=== PATIENT | male | born 1980 | race Caucasian/White ===

== ENCOUNTER 2021-01-15 13:08 | Inpatient (IN) | payer BC ==
[~2021-01-15] VITALS: Ht 193 cm; Wt 106.8 kg
[2021-01-15 14:22] LABS: BASOPHILS % (AUTO) 0.5 % (0-1); EOSINOPHILS # (AUTO) 0.1 X10'3 (0-0.9); EOSINOPHILS % (AUTO) 1.3 % (0-6); LYMPHOCYTES # (AUTO) 1.3 X10'3 (1.1-4.8); LYMPHOCYTES % (AUTO) 16.7 % (21-51); MEAN CORPUSCULAR HEMOGLOBIN 28.5 PG (27.0-31.0); MEAN CORPUSCULAR HGB CONC 34.1 g/dL (33.0-36.5); MEAN CORPUSCULAR VOLUME 83.7 FL (78-98); MEAN PLATELET VOLUME 7.8 FL (7.4-10.4); MONOCYTES # (AUTO) 0.5 X10'3 (0-0.9); MONOCYTES % (AUTO) 6.4 % (2-12); NEUTROPHILS % (AUTO) 75.1 % (42-75); PLATELET COUNT 244 X10'3 (140-440); RED CELL DISTRIBUTION WIDTH 13.1 % (11.5-14.5)
[2021-01-15 14:41] LABS: ALANINE AMINOTRANSFERASE 38 U/L (12-78); ALBUMIN 3.8 G/DL (3.4-5.0); ALKALINE PHOSPHATASE 72 IU/L (46-116); AMYLASE 37 U/L (25-115); ANION GAP 8 (8-16); ASPARTATE AMINO TRANSFERASE 20 U/L (10-37); BILIRUBIN,TOTAL 0.9 MG/DL (0.1-1.0); BLOOD UREA NITROGEN 16 MG/DL (7-18); BUN/CREATININE RATIO 14.8 (5.4-32.0); CALCIUM 8.9 MG/DL (8.5-10.1); CHLORIDE 104 MMOL/L (99-107); CREATININE 1.08 MG/DL (0.60-1.10); GLUCOSE 89 MG/DL (70-104); LIPASE 63 U/L (73-393); SODIUM 142 MMOL/L (135-145); TOTAL CARBON DIOXIDE 30.3 MMOL/L (24-32); TOTAL PROTEIN 7.6 G/DL (6.4-8.2); eGFR 76 ML/MIN
[2021-01-15] MEDS ORDERED: normal saline 1000ML IV soln IVB ONE (18:35)
[2021-01-15] MEDS ORDERED: iohexol 300mg/ml 100ml inj. ONE (18:40)
[2021-01-15 19:16] LABS: CLARITY,URINE CLEAR (Clear); COLOR,URINE YELLOW (Yellow); GLUCOSE, URINE NEGATIVE (Neg); KETONES,URINE NEGATIVE (Neg); LEUKOCYTE ESTERASE ,URINE NEGATIVE (Neg); NITRITES, URINE NEGATIVE (Neg); OCCULT BLOOD,URINE NEGATIVE (Neg); PH,URINE 5.5 (4.8-8.0); PROTEIN,URINE NEGATIVE (Neg); UROBILINOGEN,URINE 0.2 E.U/dL (0.2-1.0)
[2021-01-15 19:22] LABS: UA COLLECTION TYPE NON-SPECIFIED
[2021-01-15] MEDS ORDERED: temazepam 15mg capsule PO PRN (21:00)
[2021-01-15] MEDS ORDERED: metroNIDAZOLE-Flagyl 500mg/NS 100 ML IV ONE (21:35)
[2021-01-15] MEDS ORDERED: levoFLOXACIN-Levaquin 250mg/D5 50 ML IV ONE (21:35)
[2021-01-15] MEDS ORDERED: NO HOME MEDS (21:42)
[2021-01-15] MEDS ORDERED: bisacodyl 10mg suppository rectal RC PRN (22:10)
[2021-01-15] MEDS ORDERED: diphenhydrAMINE 25mg capsule PO PRN (22:10)
[2021-01-15] MEDS ORDERED: HYDROcodone/acetaminophen 10/325mg tab PO PRN (22:10)
[2021-01-15] MEDS ORDERED: magnesium hydroxide 30ml (MOM) UD suspension PO PRN (22:10)
[2021-01-15] MEDS ORDERED: metoclopramide 5 mg/ml inj IV PRN (22:10)
[2021-01-15] MEDS ORDERED: ondansetron 4mg rapidly disintigrating tab PO PRN (22:10)
[2021-01-15] MEDS ORDERED: acetaminophen 650mg rectal suppository RC PRN (22:10)
[2021-01-15] MEDS ORDERED: acetaminophen 325mg tablet PO PRN (22:10)
[2021-01-15] MEDS ORDERED: morphine 2 MG/ML inj. syringe IV PRN ×2 (22:10)
[2021-01-15] MEDS ORDERED: HYDROcodone/acetaminophen 5mg/325mg tablet PO PRN (22:10)
[2021-01-15] MEDS ORDERED: diphenhydrAMINE 50 mg/ml inj IV PRN (22:10)
[2021-01-15] MEDS ORDERED: ondansetron/PF 4mg/2ml inj IV PRN (22:10)
[2021-01-15] MEDS ORDERED: HYDROmorphone inj. 0.5 MG/0.5 ML DISP.SYRIN IV PRN (22:10)
[2021-01-15] MEDS ORDERED: mag hydrox/Alum hydrox/simeth 30ml oral suspension PO PRN (22:10)
[2021-01-15] MEDS: normal saline 1000ml 1,000 ML IV SCH (22:25)
[2021-01-15 22:47] LABS: MAGNESIUM 2.1 MG/DL (1.5-2.4)
[2021-01-15] MEDS: pantoprazole 40 MG vial IV SCH (23:17)
[2021-01-16 05:18] LABS: BASOPHILS % (AUTO) 0.3 % (0-1); EOSINOPHILS # (AUTO) 0.1 X10'3 (0-0.9); EOSINOPHILS % (AUTO) 1.3 % (0-6); HEMATOCRIT 37.6 % (42.0-52.0); HEMOGLOBIN 12.7 g/dl (14.0-17.9); LYMPHOCYTES # (AUTO) 1.3 X10'3 (1.1-4.8); LYMPHOCYTES % (AUTO) 20.3 % (21-51); MEAN CORPUSCULAR HEMOGLOBIN 28.5 PG (27.0-31.0); MEAN CORPUSCULAR HGB CONC 33.7 g/dL (33.0-36.5); MEAN CORPUSCULAR VOLUME 84.6 FL (78-98); MEAN PLATELET VOLUME 8.2 FL (7.4-10.4); MONOCYTES # (AUTO) 0.6 X10'3 (0-0.9); NEUTROPHILS # (AUTO) 4.3 X10'3 (1.8-7.7); NEUTROPHILS % (AUTO) 69.1 % (42-75); PLATELET COUNT 183 X10'3 (140-440); RED BLOOD COUNT 4.44 X10'6 (4.70-6.10); RED CELL DISTRIBUTION WIDTH 13.1 % (11.5-14.5); WHITE BLOOD COUNT 6.2 X10'3 (4.5-11.0)
[2021-01-16 05:47] LABS: ALANINE AMINOTRANSFERASE 32 U/L (12-78); ALBUMIN 2.9 G/DL (3.4-5.0); ALBUMIN/GLOBULIN RATIO 0.9 (1.1-1.5); ALKALINE PHOSPHATASE 62 IU/L (46-116); ANION GAP 7 (8-16); ASPARTATE AMINO TRANSFERASE 21 U/L (10-37); BILIRUBIN,TOTAL 1.2 MG/DL (0.1-1.0); BLOOD UREA NITROGEN 14 MG/DL (7-18); BUN/CREATININE RATIO 13.6 (5.4-32.0); CHLORIDE 106 MMOL/L (99-107); CREATININE 1.03 MG/DL (0.60-1.10); GLUCOSE 104 MG/DL (70-104); POTASSIUM 4.4 MMOL/L (3.5-5.1); SODIUM 142 MMOL/L (135-145); TOTAL CARBON DIOXIDE 29.1 MMOL/L (24-32); TOTAL PROTEIN 6.1 G/DL (6.4-8.2); eGFR 80 ML/MIN
[2021-01-16] MEDS: metroNIDAZOLE-Flagyl 500mg/NS 100 ML IV SCH ×3 (08:00→16:40)
[2021-01-16] MEDS: docusate sod 100mg capsule PO SCH ×2 (08:00→19:49)
[2021-01-16] MEDS: pantoprazole 40 MG vial IV SCH (08:00)
[2021-01-16] MEDS: normal saline 1000ml 1,000 ML IV SCH ×3 (08:05→19:54)
[2021-01-16] MEDS: levoFLOXACIN-Levaquin 750MG/D5 150 ML IV SCH (09:05)
--- NOTE | 2021-01-16 10:30 | NUR ---
Report received from ED RNSiobhan.
[2021-01-16 11:00] VITALS: BP 132/96
[2021-01-16] MEDS ORDERED: LEVO500T89 PO (14:10)
[2021-01-16] MEDS ORDERED: HYDR-3965 PO (14:10)
[2021-01-16] MEDS ORDERED: METR-159 PO (14:10)
--- NOTE | 2021-01-16 18:20 | NUR ---
Problems reprioritized. Patient report given, questions answered & plan of care reviewed with Carolina Springer RN.
--- NOTE | 2021-01-16 18:20 | NUR ---
Patient in room [facility]. I have received report from SWAPNA Chamberlain and had the opportunity to ask questions and assume patient care.
[2021-01-16 18:30] VITALS: BP 163/89
--- NOTE | 2021-01-16 19:13 | NUR ---
Dr. Dawn in to see patient. No surgery at this time. Will f/u in office after DC.
[2021-01-16] MEDS: lactobacillus rhamnosus 10,000 MMU CELLS/CAPSULE PO SCH (19:49)
[2021-01-17] VITALS: BP 130/75
[2021-01-17] MEDS: metroNIDAZOLE-Flagyl 500mg/NS 100 ML IV SCH ×2 (00:01→08:01)
[2021-01-17] MEDS: normal saline 1000ml 1,000 ML IV SCH (05:39)
--- NOTE | 2021-01-17 06:15 | NUR ---
Problems reprioritized. Patient report given, questions answered & plan of care reviewed with SWAPNA Monet.
--- NOTE | 2021-01-17 06:32 | NUR ---
Patient in room [facility]. I have received report from Carolina BARCENAS and had the opportunity to ask questions and assume patient care.
[2021-01-17 07:05] LABS: BASOPHILS % (AUTO) 0.3 % (0-1); EOSINOPHILS # (AUTO) 0.1 X10'3 (0-0.9); EOSINOPHILS % (AUTO) 1.9 % (0-6); HEMATOCRIT 37.8 % (42.0-52.0); HEMOGLOBIN 13.1 g/dl (14.0-17.9); LYMPHOCYTES % (AUTO) 18.9 % (21-51); MEAN CORPUSCULAR HEMOGLOBIN 28.5 PG (27.0-31.0); MEAN CORPUSCULAR HGB CONC 34.7 g/dL (33.0-36.5); MEAN CORPUSCULAR VOLUME 82.3 FL (78-98); MEAN PLATELET VOLUME 8.1 FL (7.4-10.4); MONOCYTES # (AUTO) 0.4 X10'3 (0-0.9); MONOCYTES % (AUTO) 8.3 % (2-12); NEUTROPHILS # (AUTO) 3.6 X10'3 (1.8-7.7); NEUTROPHILS % (AUTO) 70.6 % (42-75); PLATELET COUNT 204 X10'3 (140-440); RED BLOOD COUNT 4.59 X10'6 (4.70-6.10); RED CELL DISTRIBUTION WIDTH 12.8 % (11.5-14.5); WHITE BLOOD COUNT 5.1 X10'3 (4.5-11.0)
[2021-01-17 07:32] LABS: ALANINE AMINOTRANSFERASE 27 U/L (12-78); ALBUMIN 2.9 G/DL (3.4-5.0); ALBUMIN/GLOBULIN RATIO 0.9 (1.1-1.5); ALKALINE PHOSPHATASE 71 IU/L (46-116); ANION GAP 6 (8-16); ASPARTATE AMINO TRANSFERASE 14 U/L (10-37); BILIRUBIN,TOTAL 0.7 MG/DL (0.1-1.0); BLOOD UREA NITROGEN 10 MG/DL (7-18); BUN/CREATININE RATIO 9.7 (5.4-32.0); CALCIUM 7.9 MG/DL (8.5-10.1); CHLORIDE 108 MMOL/L (99-107); CREATININE 1.03 MG/DL (0.60-1.10); GLUCOSE 111 MG/DL (70-104); POTASSIUM 3.9 MMOL/L (3.5-5.1); SODIUM 143 MMOL/L (135-145); TOTAL CARBON DIOXIDE 29.5 MMOL/L (24-32); TOTAL PROTEIN 6.3 G/DL (6.4-8.2); eGFR 80 ML/MIN
[2021-01-17 08:00] VITALS: BP 141/101
[2021-01-17] MEDS: lactobacillus rhamnosus 10,000 MMU CELLS/CAPSULE PO SCH (08:00)
[2021-01-17] MEDS: docusate sod 100mg capsule PO SCH (08:01)
[2021-01-17] MEDS: levoFLOXACIN-Levaquin 750MG/D5 150 ML IV SCH (08:01)
[2021-01-17] MEDS: pantoprazole 40 MG vial IV SCH (08:02)
[2021-01-17] MEDS ORDERED: HYDR-3965 PO (11:28)
--- NOTE | 2021-01-17 11:33 | NUR ---
DUNIA TC: Pt has diet questions regarding admit DX diverticulitis w/ reticular phlegmon and microperforation currently on clear liquid diet. Pt/SO seen by LOUIS for low-fiber diet ed w/ RD contact information provided. LOUIS encouraged pt/SO to contact dietitian's office if further questions/concerns. Addendum: 01/17/21 at [address] Amended: Links added.
[2021-01-17 12:00] VITALS: BP 135/88
--- NOTE | 2021-01-17 13:01 | NUR ---
Pt is A & O x4 and no apparent distress. Pt and verbalize understanding of ALL dc orders. Pt understands the importance of finishing his antibiotics. Pt will follow up with Dr Dawn within a week. Pt and were given print outs and information about diet and what diverticulitis is. Pt is happy to go home. Pt 's IV is out intact. Pt wheeled to the front where pick him up to go home.
== END 2021-01-17 13:05 | disposition home or self-care (01) | DRG 392 ==
LOC: ER 13:08 → ED HOLD 22:09 → SUR 3N 01-16 11:04
PROVIDERS: ADMIT Family Medicine; ATTEND Internal Medicine
PROC: BW211ZZ Computerized Tomography (CT Scan) of Abdomen and Pelvis using Low Osmolar Contrast (ICD-10-PCS; principal; 2021-01-15)
DX: K57.20 Diverticulitis of large intestine with perforation and abscess without bleeding (principal); E86.0 Dehydration; I11.0 Hypertensive heart disease with heart failure; I50.9 Heart failure, unspecified; Z88.0 Allergy status to penicillin
CPT/HCPCS: 36415; 74177; 80053; 81003; 82150; 83605; 83690; 83735; 83880; 84145; 85025; 87040; 87077; 87081; 87186; 96361; 96365; 96368; 99285; C9113; G0378; J1956; J3490; J7030; Q9967